=== PATIENT | male | born 1995 | race Caucasian/White ===

== ENCOUNTER 2017-06-02 18:48 | Emergency (ER) | payer MEDICAID, SELFPAY ==
[2017-06-02 18:53] VITALS: BP 131/76; PULSE 93; RESP 16; TEMP 36.7; BMI 20.5
[2017-06-02 22:00] VITALS: BP 121/81; PULSE 102; RESP 20; TEMP 36.6; O2SAT 100; BMI 21.1
[2017-06-02 23:06] VITALS: BP 0/0; PULSE 0; RESP 0; TEMP -17.7; TEMP 0
== END 2017-06-02 23:07 | disposition left against medical advice (07) ==
PROVIDERS: Emergency Provider Nurse Practitioner Family; Family Provider Internal Medicine; PCP Internal Medicine
DX: Z53.29 Procedure and treatment not carried out because of patient's decision for other reasons (principal)
CPT/HCPCS: 99202; 99211

== ENCOUNTER 2019-09-27 19:17 | Emergency (ER) | payer MEDICAID, SELFPAY ==
[2019-09-27] VITALS (8 sets, daily range): BP systolic 102–122; BP diastolic 58–81; PULSE 66–88; RESP 18–20; TEMP 36.7; O2SAT 94–98; BMI 24.1
--- NOTE | 2019-09-27 19:25 | ECG_ITS ---
APPROVED REPORT Exam: Resting ECG HR:86 bpm ECG Measurements Heart Rate 86 AXES VA 160 P 77 QRSd 78 QRS 71 QT 354 T 73 QTc 423 <Conclusion> Normal sinus rhythm Early repolarization Normal ECG Electronically signed by : Joshua Faria, 09/28/2019 06:12:16
[2019-09-27 19:37] LABS: Basophils % 0.5 % (0.1-2.0); Eosinophils # 0.6 K/mm3 (0.0-0.4); Eosinophils % 7.1 % (0.1-12.0); Hematocrit 44.1 % (42.0-52.0); Hemoglobin 14.8 g/dL (14.1-18.0); Lymphocytes # 1.6 K/mm3 (0.7-4.5); Lymphocytes % 17.9 % (10-50); Mean Corpuscular HGB Conc 33.5 g/dL (31.8-35.4); Mean Corpuscular Hemoglobin 29.4 pg (27.0-31.2); Mean Corpuscular Volume 87.6 fl (80-94); Monocytes # 0.6 K/mm3 (0.1-1.0); Monocytes % 6.5 % (1.7-9.3); Platelet Count 274 K/mm3 (142-424); Red Blood Count 5.04 M/mm3 (4.60-6.20); Red Cell Distribution Width 13.4 % (11.5-17.5); White Blood Count 8.8 K/mm3 (4.8-10.8)
[2019-09-27 19:42] LABS: Chloride 109 mmol/L (98-107); Potassium 3.7 mmoL/L (3.5-5.1); Sodium 141 mmol/L (136-145)
[2019-09-27 19:44] LABS: Alanine Aminotransferase 15 U/L (12-78); Aspartate Amino Transferase 26 U/L (17-59); Blood Urea Nitrogen 16 mg/dl (9-20); Creatinine Clearance Estimated 132 mL/min (50-200); Estimated Glomerular Filt Rate 119 ml/min (>60); GFR (African American) 144 ML/MIN (>60)
[2019-09-27 19:45] LABS: Albumin Level 4.2 g/dl (3.5-5.0); Albumin/Globulin Ratio 1.4 (1.1-1.8); Alkaline Phosphatase 76 U/L (38-126); Anion Gap 17.7 mEq/L (5-15); Bilirubin,Total 0.9 mg/dl (0.2-1.3); Carbon Dioxide 18 mmol/L (22.0-30.0); Glucose 118 mg/dl (74-100); Total Protein,Serum 7.2 g/dl (6.3-8.2)
[2019-09-27 19:46] LABS: Ethyl Alcohol 234 mg/dl (0-10)
--- NOTE | 2019-09-27 20:13 | [facility].EDMCLR ---
ED Disposition Clinical Impression: Abnormal drug screen, Opiate use Alcohol intoxication Qualifiers: Complication of substance-induced condition: with unspecified complication Qualified Code(s): F10.929 - Alcohol use, unspecified with intoxication, unspecified Disposition: Home, Self-Care Condition on Discharge: Good Instructions: DI for Drug Abuse and Drug Addiction Additional Instructions: call pcp for follow up Referrals: Provider,Referral, MD [Primary Care Provider] - - Critical Care Critical Care Time: No Attestation: On 09/27/19, the high probability of a clinically significant, sudden or life threatening deterioration of the following system(s) required my full and direct attention, intervention and personal management. The time I documented below is in addition to time spent performing reported procedures but includes the following listed in this critical care notation. Medical Decision Making - Medical Records Medical records reviewed: Yes: I reviewed the patient's medical records. - Turner Inquiry Pt receiving controlled substance: No Vital Signs: 09/27/19 19:18 09/27/19 19:33 09/27/19 20:08 Temperature 98.0 F Temperature Source Oral Pulse Rate [Right Brachial] 83 75 88 Respiratory Rate 20 18 18 Blood Pressure [Right Arm] 122/81 107/69 L 104/62 L Blood Pressure Mean [Right Arm] 94 81 76 Blood Pressure Source [Right Arm] Automatic Cuff Automatic Cuff Blood Pressure Position [Right Arm] Sitting Sitting 02 Sat by Pulse Oximetry 98 98 97 Oxygen Delivery Method Room Air Room Air Room Air 09/27/19 20:37 09/27/19 21:17 09/27/19 21:56 Temperature Temperature Source Pulse Rate [Right Brachial] 81 66 75 Respiratory Rate 18 18 18 Blood Pressure [Right Arm] 105/58 L 102/58 L 111/62 Blood Pressure Mean [Right Arm] 73 72 78 Blood Pressure Source [Right Arm] Blood Pressure Position [Right Arm] 02 Sat by Pulse Oximetry 96 94 L 97 Oxygen Delivery Method Room Air Room Air Room Air 09/27/19 22:47 09/27/19 23:03 09/28/19 00:17 Temperature Temperature Source Pulse Rate [Right Brachial] 70 69 60 Respiratory Rate 18 18 Blood Pressure [Right Arm] 107/64 L 107/67 L 106/65 L Blood Pressure Mean [Right Arm] 78 80 78 Blood Pressure Source [Right Arm] Blood Pressure Position [Right Arm] 02 Sat by Pulse Oximetry 94 L 97 98 Oxygen Delivery Method Room Air Room Air Room Air 09/28/19 00:49 09/28/19 01:10 Temperature Temperature Source Pulse Rate [Right Brachial] 61 84 Respiratory Rate 15 14 Blood Pressure [Right Arm] 100/55 L 119/75 Blood Pressure Mean [Right Arm] 70 89 Blood Pressure Source [Right Arm] Blood Pressure Position [Right Arm] 02 Sat by Pulse Oximetry 100 98 Oxygen Delivery Method Room Air - Lab Data Lab results reviewed: Yes: I reviewed the patient's lab results. 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
--- NOTE | 2019-09-27 20:16 | XR_ITS ---
PROCEDURE: XR CHEST PORTABLE CLINICAL HISTORY: ams Altered mental status, altered level of consciousness, confusion, disorientation COMPARISON: XR CHEST 2V from 07/21/2019 FINDINGS: The cardiomediastinal silhouette and pulmonary vascularity are within normal limits. The lungs are clear without infiltrates, suspicious nodules, or pleural effusions. No acute bony abnormalities. IMPRESSION: No acute findings. Dictated by: Sampson Nur MD 09/27/2019 22:19 Electronically signed by Sampson Nur MD in [place] 09/27/2019 22:19
[2019-09-27 20:18] LABS: Acetaminophen < 10 ug/ml (10-30); Salicylate < 1.0 mg/dL (2.0-20.0); Troponin I < 0.01 ng/ml (0.00-0.034)
[2019-09-27 20:22] LABS: Microscopic, Urine URINE MICROSCOPIC (MICROSCOPIC)
[2019-09-27 20:27] LABS: Appearance,Urine CLEAR (Clear); Bilirubin,Urine Negative (Negative); Blood, Urine Negative (Negative); Color,Urine YELLOW (Yellow); Glucose,Urine (UA) Negative (Negative); Ketones,Urine Negative (Negative); Leukocyte Esterase,Urine Negative (Negative); Nitrate,Urine Negative (Negative); Protein,Urine Negative (Negative); Urobilinogen,Urine 0.2 EU/dl (0.2)
[2019-09-27 20:34] LABS: Bacteria,Urine 1+ /lpf; Mucus,Urine 1+ /lpf
[2019-09-27 20:38] LABS: Barbiturates Screen,Urine Negative ng/ml (<200)
[2019-09-27 20:39] LABS: Benzodiazepines Screen,Urine Negative ng/ml (<200)
[2019-09-27 20:40] LABS: Methadone Screen,Urine Negative ng/ml (<300)
[2019-09-27 20:41] LABS: Cannabinoid Screen,Urine Positive ng/ml (<50)
[2019-09-27 20:42] LABS: Cocaine Screen,Urine Negative ng/ml (<300); Opiate Screen,Urine Negative ng/ml (<300)
[2019-09-27 20:43] LABS: Phencyclidine Screen,Urine Negative ng/ml (<25)
--- NOTE | 2019-09-27 21:26 | PC.NURSE ---
pt chidi for citation by police, immediately falls back asleep. additional narcan given.
--- NOTE | 2019-09-27 21:27 | PC.NURSE ---
pt not responding to police via verbal stimuli, required physical stimulus and also ammonia inhalant to wake up patient.
--- NOTE | 2019-09-27 21:28 | PC.NURSE ---
arguello cath removed.
[2019-09-28] VITALS (7 sets, daily range): BP systolic 100–119; BP diastolic 55–75; PULSE 60–87; RESP 14–18; TEMP 36.7; O2SAT 98–100
--- NOTE | 2019-09-28 05:12 | PC.NURSE ---
pt a/o to self and surrounding at this time however unable to tell staff what he remembers last. Pt is ambulatory and requesting something to drink. When asked if there was anyone we could call to come get pt, pt stated he was homeless at this time and did not have anyone for us to call. Pt was provided with a drink and a snack. Pt has no complaints at this time and does not seem to be in distress. Will continue to monitor and will contact care management when they arrive for arrangements for the pt.
--- NOTE | 2019-09-28 05:15 | PC.NURSE ---
pt alert and oriented, rouses easily to stimulation. very polite. states he is homeless. will advise oncoming staff to discuss with care management. vss.
--- NOTE | 2019-09-28 07:11 | PC.NURSE ---
willam speaking with james chandra: assist with homeless situation. report given to johnnie byrd.
--- NOTE | 2019-09-28 07:41 | PC.NURSE ---
Pt given breakfast tray at shift change. Pt states he doesn't feel like eating. Samantha Bennett from care management came down to talk with pt about possible getting him to a prison. Pt declines the offer. Pt asks if he can just leave because he has clothes hidden around town and he needs to go get them before someone else takes them. New clothes brought down by Samantha Bennett, pt gets dressed and is escorted out by Samantha.
--- NOTE | 2019-09-28 07:49 | SW/DCPLANNER ---
RECEIVED A CALL FROM THE ED THAT THIS PATIENT WAS BROUGHT IN VIA 2 POLICE OFFICERS AFTER BEING FOUND UNRESPONSIVE ON THE SIDEWALK DOWN IN [facility], NARCAN WAS ADMINISTERED AND HE IMMEDIATELY WOKE UP...HE WAS POSITIVE FOR THC AND HAD A HIGH ETOH CONTENT... HE SPENT THE NIGHT IN THE ED AND THIS MORNING HE WAS READY TO DISCHARGE AND DID NOT WANT ANY TYPR OF HELP. HIS CLOTHES WERE CUT OFF AND I HAD TO FIND HIM SOMETHING TO PUT ON...HE STATED HE DOES NOT LIVE AROUND HERE AND CAME TO SEE HIS CHILDREN THAT ARE HERE.. HE IS WANTING TO GET BACK TO [facility] AND LEFT OUT OF THE HOSPITAL WALKING... I ASKED IF HE WAN INTERESTED IN A ALF AND HE REFUSED..
[2019-10-01 07:31] LABS: Amphetamine Positive (.); Amphetamines Positive (.); Methamphetamine Positive (.)
[2019-10-01 09:27] LABS: Amphetamine (GC/MS) 1032 ng/mL (Cutoff=500); Methamphetamine (GC/MS) 830 ng/mL (Cutoff=500)
== END 2019-09-28 07:45 | disposition home or self-care (01) ==
PROVIDERS: Emergency Provider Emergency Medicine
DX: F10.929 Alcohol use, unspecified with intoxication, unspecified (principal); F12.10 Cannabis abuse, uncomplicated; R89.2 Abnormal level of other drugs, medicaments and biological substances in specimens from other organs, systems and tissues; F17.210 Nicotine dependence, cigarettes, uncomplicated
CPT/HCPCS: 36415; 71045; 80053; 80305; 80324; 80329; 81001; 84484; 85025; 93005; 96374; 99284; J2310